=== PATIENT | female | born 1990 | race African-American/Black ===

== ENCOUNTER 2018-07-08 12:06 | Emergency (ER) | payer SELFPAY ==
[~2018-07-08] VITALS: Ht 160 cm; Wt 65.0 kg
[2018-07-08 12:25] VITALS: BP 114/76
[2018-07-08] MEDS ORDERED: IBUPROFEN 600MG TABLET PO ONE (13:30)
== END 2018-07-08 14:14 | disposition home or self-care (01) ==
LOC: ER 12:33
DX: S13.9XXA Sprain of joints and ligaments of unspecified parts of neck, initial encounter (principal); M25.512 Pain in left shoulder; M54.6 Pain in thoracic spine; V49.88XA Car occupant (driver) (passenger) injured in other specified transport accidents, initial encounter; Y93.89 Activity, other specified; Y92.89 Other specified places as the place of occurrence of the external cause; Y99.8 Other external cause status
CPT/HCPCS: 81025; 99283